=== PATIENT | male | born 1965 | race Caucasian/White ===

== ENCOUNTER 2018-11-16 22:17 | Inpatient (IN) ==
[2018-11-16] MEDS ORDERED: 0.9 % Sodium Chloride 1,000 ML IVC ONE (22:23)
[2018-11-16] MEDS ORDERED: Ondansetron 4 MG/2 ML VIAL IVP ONE (22:23)
[2018-11-16] MEDS ORDERED: *HR* HYDROmorphone (PF) 1 MG/ML SYRINGE IVP ONE (22:23)
[2018-11-16 22:46] LABS: Basophils % 0.2 %; Eosinophils % 0.3 %; Hematocrit 46.3 % (37.5-50.1); Immature Granulocytes % 0.2 % (0-4); Lymphocytes # 2.2 K/mcL (0.6-4.6); Lymphocytes % 16.3 %; Mean Corpuscular HGB Conc 34.6 g/dL (31.6-35.5); Mean Corpuscular Hemoglobin 32.5 pg (28.0-33.3); Mean Corpuscular Volume 94.1 fL (83.0-100.0); Mean Platelet Volume 10.4 fL (9.4-12.4); Monocytes # 0.9 K/mcL (0.0-1.3); Monocytes % 6.7 %; Neutrophils # 10.1 K/mcL (1.6-8.9); Platelet Count 140 K/mcL (140-400); Red Blood Count 4.92 M/mcL (4.19-5.50); Red Cell Distribution Width 12.5 % (11.5-14.5); Segmented Neutrophils % 76.3 %; White Blood Count 13.2 K/mcL (4.3-11.1)
--- NOTE | 2018-11-16 22:49 | Emergency Department Note ---
Disposition Clinical Impression: Pancreatitis Qualifiers: Chronicity: acute Pancreatitis type: unspecified pancreatitis type Acute pancreatitis complication: unspecified Qualified Code(s): K85.90 - Acute pancreatitis without necrosis or infection, unspecified Disposition: Admitted As Inpatient Condition: Good Time of Disposition: 00:01 Abdominal Pain HPI - General Chief Complaint: ED Abdominal Pain Stated Complaint: abdominal pain Time Seen by Provider: 11/16/18 22:23 Source: patient, family Nursing Notes Reviewed: Yes Vital Signs Reviewed: Yes - History of Present Illness HPI Narrative: Male patient presenting to the emergency department complaining of a two-day history of abdominal pain. Does have a history of pancreatitis 2 times that this is been several years ago. Also history of diabetes and Parkinson's. States that the pain started yesterday but is gotten significantly worse today after eating [employer] this afternoon. Patient complaining of epigastric pain. Denies any fevers or chills. Denies any shortness breath or cough. Does report some nausea with associated vomiting that is nonbloody nonbilious. No diarrhea. No alleviating factors. No radiation of the pain. Pain Scale: 6 - Related Data Home Medications Medication Instructions Recorded Confirmed Atorvastatin [Lipitor] 40 mg PO HS 11/16/18 11/16/18 Carbidopa/Levodopa [Carbidopa-Levo 1 each PO BID 11/16/18 11/16/18 ER 25-100 Tab] Lisinopril [Zestril] 20 mg PO DAILY 11/16/18 11/16/18 metFORMIN [Glucophage] 1,000 mg PO BIDWM 11/16/18 11/16/18 Allergies Allergy/AdvReac Type Severity Reaction Status Date / Time Iodinated Contrast Media Allergy Hives Verified 11/16/18 22:19 All systems ED: reviewed and negative except as stated. Review of Systems: As Per HPI Constitutional: Denies: fever, chills Cardiovascular: Denies: chest pain, palpitations, syncope Respiratory: Denies: cough, dyspnea Gastrointestinal: Reports: abdominal pain, nausea, vomiting. Denies: diarrhea, hematemesis, melena, hematochezia Genitourinary: Denies: urgency, dysuria, frequency Musculoskeletal: Denies: back pain, neck pain Integumentary: Denies: rash, abrasion Neurological: Denies: headache, weakness, numbness Abdominal Pain PMH - Past Medical History Medical history: Reports: diabetes, hyperlipidemia, hypertension, other Male Surgical History: Reports: appendectomy, orthopedic, other, vasectomy Psychiatric history: Reports: no psych history - Social History Smoking status: Former smoker Alcohol use: Reports: occasionally Drug use: Reports: none Physical Exam - General Limitations: no limitations General appearance: alert, other (Complaining of pain. Looks uncomfortable.) - Head Head exam: atraumatic, normocephalic, normal inspection - Eye Eye exam: Present: normal appearance, PERRL, EOMI - ENT ENT exam: normal exam, normal oropharynx, mucous membranes moist - Neck Neck exam: Present: normal inspection, full ROM, trachea midline - Chest Chest inspection: Present: normal inspection, symmetric chest wall rise - Respiratory Respiratory exam: Present: normal lung sounds bilaterally. Absent: respiratory distress, accessory muscle use - Cardiovascular Cardiovascular exam: Present: regular rate, normal rhythm, normal heart sounds - Abdominal Exam Abdominal exam: Present: soft, tenderness (To palpation of left upper quadrant and epigastric region.), distention (Rounded. Non-peritoneal.). Absent: guarding, rebound, rigidity, organomegaly, Farley's sign, Rovsing's sign, tender ness at McBurney's Point - Extremities Exam Extremities exam: Present: normal inspection, full ROM, normal capillary refill. Absent: tenderness, pedal edema - Back Exam Back exam: Present: normal inspection, full ROM. Absent: tenderness - Neurological Exam Neurological exam: Present: alert, oriented X3 - Psychiatric Psychiatric exam: Present: normal affect, normal mood - Skin Skin exam: Present: warm, dry, intact, normal color. Absent: rash, cyanosis, diaphoresis Course Course Narrative: Patient appears uncomfortable. Was given pain medication as well as antinausea medication basic labs were drawn. Lipase is elevated. Patient with concerns for pancreatitis on CT as well. Does have a history of pancreatitis as well as is a diabetic. We did provide him with another dose of Dilaudid while he is here. We also provided him with a BiPAP device secondary to his history of sleep apnea. He is not febrile. Does not believe that he will be able to c ontrol his pain at home. We will admit patient to the hospital for further pain management. Vital Signs Temperature 98.0 F 11/16/18 22:19 Pulse Rate 81 11/16/18 22:19 Respiratory Rate 20 11/16/18 22:19 Blood Pressure 150/92 11/16/18 22:19 O2 Sat by Pulse Oximetry 94 11/16/18 22:19 Temperature 98.0 F 11/16/18 22:19 Pulse Rate 85 11/16/18 23:39 Respiratory Rate 18 11/16/18 23:39 Blood Pressure 149/90 11/16/18 23:39 O2 Sat by Pulse Oximetry 92 11/16/18 23:39 Oxygen Delivery Oxygen Delivery Room Air Abdominal Pain - Medical Records Medical records reviewed: Yes I reviewed the patient's medical records. - Lab Data Lab results reviewed: Yes I reviewed the patient's lab results. Result diagrams: 11/16/18 22:38 11/16/18 22:38 Lab Results 11/16/18 11/16/18 Range/Units 22:38 22:38 WBC 13.2 H (4.3-11.1) K/mcL RBC 4.92 (4.19-5.50) M/mcL Hgb 16.0 (12.9-16.9) g/dL Hct 46.3 (37.5-50.1) % MCV 94.1 (83.0-100.0) fL MCH 32.5 (28.0-33.3) pg MCHC 34.6 (31.6-35.5) g/dL RDW 12.5 (11.5-14.5) % Plt Count 140 (140-400) K/mcL MPV 10.4 (9.4-12.4) fL Immature Gran % 0.2 (0-4) % Seg Neutrophils % 76.3 % Lymphocytes % 16.3 % Monocytes % 6.7 % Eosinophils % 0.3 % Basophils % 0.2 % Neutrophils # 10.1 H (1.6-8.9) K/mcL Lymphocytes # 2.2 (0.6-4.6) K/mcL Monocytes # 0.9 (0.0-1.3) K/mcL Eosinophils # 0.0 (0.0-0.6) K/mcL Basophils # 0.0 (0.0-0.2) K/mcL Sodium 134 L (136-145) mEq/L Potassium 4.0 (3.5-5.1) mEq/L Chloride 101 (98-107) mEq/L Carbon Dioxide 24 (23-29) mEq/L BUN 15 (6-20) mg/dL Creatinine 0.69 L (0.70-1.30) mg/dL Est GFR ( Amer) > 60 (> 60) Est GFR (Non-Af Amer) > 60 (> 60) BUN/Creatinine Ratio 22 (6-26) Glucose 146 H (70-105) mg/dL Calculated Osmolality 281 (280-300) Calcium 9.0 (8.6-10.3) mg/dL Total Bilirubin 0.8 (0.3-1.0) mg/dL Direct Bilirubin 0.2 (0.0-0.2) mg/dL Indirect Bilirubin 0.6 (0.0-1.2) mg/dL AST 39 (13-39) Units/L ALT 16 (7-52) Units/L Alkaline Phosphatase 75 (34-104) Units/L Serum Total Protein 7.5 (6.4-8.9) g/dL Albumin 3.9 (3.5-5.7) g/dL Globulin 3.6 H (2.4-3.5) g/dL Albumin/Globulin Ratio 1.1 (1.1-2.2) Lipase 900 H (11-82) Units/L - Radiology Data Radiology results reviewed: Yes I reviewed the patient's radiology results. Abdomen/Pelvis CT 11/16/18 22:23 IMPRESSION: Moderate inflammatory changes compatible with acute pancreatitis. There is a small amount of peripancreatic, perisplenic and pelvic fluid. Fatty infiltration of liver. Morphology liver is worrisome for chronic disease. Bilateral nephrolithiasis. D/ / Ashley Grady Cha, MD / Ashley Grady Cha, MD Interpreting Provider: Ashley Grady Cha, MD
--- NOTE | 2018-11-16 23:13 | Emergency Department Note ---
Disposition Clinical Impression: Pancreatitis Qualifiers: Chronicity: acute Pancreatitis type: unspecified pancreatitis type Acute pancreatitis complication: unspecified Qualified Code(s): K85.90 - Acute pancreatitis without necrosis or infection, unspecified Disposition: Admitted As Inpatient Condition: Good Time of Disposition: 00:01 General Adult HPI - General Chief complaint: ED Abdominal Pain Stated complaint: abdominal pain Time Seen by Provider: 11/16/18 22:23 Source: patient, family Limitations: no limitations - History of Present Illness Pain Scale: 6 - Related Data Home Medications Medication Instructions Recorded Confirmed metFORMIN [Glucophage] 500 mg PO BIDWM 11/16/18 11/17/18 Atorvastatin [Lipitor] 10 mg PO HS 11/17/18 11/17/18 Carbidopa/Levodopa ER 50/200 2 tab PO BID 11/17/18 11/17/18 [Sinemet ER 50-200 Tab] Lisinopril [Zestril] 10 mg PO DAILY 11/17/18 11/17/18 Allergies Allergy/AdvReac Type Severity Reaction Status Date / Time Iodinated Contrast Media Allergy Hives Verified 11/16/18 22:19 Past Medical History - Past Medical History Medical history: Reports: diabetes, hyperlipidemia, hypertension, other Psychiatric history: Reports: no psych history - Social History Smoking Status: Former smoker Alcohol use: Reports: occasionally Drug use: Reports: none Physical Exam - General Limitations: no limitations General appearance: alert Course Vital Signs Temperature 98.0 F 11/16/18 22:19 Pulse Rate 81 11/16/18 22:19 Respiratory Rate 20 11/16/18 22:19 Blood Pressure 150/92 11/16/18 22:19 O2 Sat by Pulse Oximetry 94 11/16/18 22:19 Temperature 98.7 F 11/17/18 19:32 Pulse Rate 94 11/17/18 19:32 Respiratory Rate 15 11/17/18 19:32 Blood Pressure 137/76 11/17/18 19:32 O2 Sat by Pulse Oximetry 93 11/17/18 19:32 Oxygen Delivery Oxygen Delivery Room Air Medical Decision Making - Lab Data Result diagrams: 11/17/18 03:35 11/16/18 22:38 Lab Results 11/16/18 11/16/18 11/16/18 Range/Units 22:38 22:38 23:50 WBC 13.2 H (4.3-11.1) K/mcL RBC 4.92 (4.19-5.50) M/mcL Hgb 16.0 (12.9-16.9) g/dL Hct 46.3 (37.5-50.1) % MCV 94.1 (83.0-100.0) fL MCH 32.5 (28.0-33.3) pg MCHC 34.6 (31.6-35.5) g/dL RDW 12.5 (11.5-14.5) % Plt Count 140 (140-400) K/mcL MPV 10.4 (9.4-12.4) fL Immature Gran % 0.2 (0-4) % Seg Neutrophils % 76.3 % Lymphocytes % 16.3 % Monocytes % 6.7 % Eosinophils % 0.3 % Basophils % 0.2 % Neutrophils # 10.1 H (1.6-8.9) K/mcL Lymphocytes # 2.2 (0.6-4.6) K/mcL Monocytes # 0.9 (0.0-1.3) K/mcL Eosinophils # 0.0 (0.0-0.6) K/mcL Basophils # 0.0 (0.0-0.2) K/mcL Sodium 134 L (136-145) mEq/L Potassium 4.0 (3.5-5.1) mEq/L Chloride 101 (98-107) mEq/L Carbon Dioxide 24 (23-29) mEq/L BUN 15 (6-20) mg/dL Creatinine 0.69 L (0.70-1.30) mg/dL Est GFR ( Amer) > 60 (> 60) Est GFR (Non-Af Amer) > 60 (> 60) BUN/Creatinine Ratio 22 (6-26) Glucose 146 H (70-105) mg/dL Calculated Osmolality 281 (280-300) Calcium 9.0 (8.6-10.3) mg/dL Total Bilirubin 0.8 (0.3-1.0) mg/dL Direct Bilirubin 0.2 (0.0-0.2) mg/dL Indirect Bilirubin 0.6 (0.0-1.2) mg/dL AST 39 (13-39) Units/L ALT 16 (7-52) Units/L Alkaline Phosphatase 75 (34-104) Units/L Serum Total Protein 7.5 (6.4-8.9) g/dL Albumin 3.9 (3.5-5.7) g/dL Globulin 3.6 H (2.4-3.5) g/dL Albumin/Globulin Ratio 1.1 (1.1-2.2) Lipase 900 H (11-82) Units/L Urine Color Yellow (Yellow) Urine Clarity Clear (Clear) Urine pH 5.5 (5.0-8.0) pH Units Ur Specific [place] 1.025 (1.010-1.025) Urine Protein Trace (Neg-Trace) mg/dL Urine Glucose (UA) 100 H (Normal) mg/dL Urine Ketones Trace H (Negative) mg/dL Urine Blood Negative (Negative) Urine Nitrite Negative (Negative) Urine Bilirubin Negative (Negative) Urine Urobilinogen Normal (Normal) mg/dL Ur Leukocyte Esterase Negative (Negative) Ur Culture Indicated? NO (NO) Attestation Statement - Attestation Attestation: I examined this patient and my medical decision-making was reviewed with the Resident Physician. I agree with the documented findings, disposition and treatment plan as described except to the extent set forth below. Patient 3-year-old gentleman who presents to the emergency department with chief complaint of epigastric pain. The patient reports he has prior history of pancreatitis this feels similar when his hepatitis before in the past. Physical exam patient is awake alert in mild pain distress tenderness to palpation in the epigastric region. Medical decision management patient received IV hydration and pain control antiemetics patient will undergo laboratory testing and CT scan of the abdomen and pelvis. The patient will not receive IV contrast due to contrast allergy.
[2018-11-16 23:20] LABS: Alanine Aminotransferase 16 Units/L (7-52); Albumin 3.9 g/dL (3.5-5.7); Albumin/Globulin Ratio 1.1 (1.1-2.2); Alkaline Phosphatase 75 Units/L (34-104); Aspartate Amino Transferase 39 Units/L (13-39); BUN/Creatinine Ratio 22 (6-26); Bilirubin,Direct 0.2 mg/dL (0.0-0.2); Bilirubin,Indirect 0.6 mg/dL (0.0-1.2); Bilirubin,Total 0.8 mg/dL (0.3-1.0); Blood Urea Nitrogen 15 mg/dL (6-20); Carbon Dioxide 24 mEq/L (23-29); Chloride 101 mEq/L (98-107); Globulin 3.6 g/dL (2.4-3.5); Glucose 146 mg/dL (70-105); Osmolality,Calculated 281 (280-300); Sodium 134 mEq/L (136-145); Total Protein 7.5 g/dL (6.4-8.9); eGFR For African Americans > 60 (> 60); eGFR For Non-African Americans > 60 (> 60)
[2018-11-16 23:31] LABS: Lipase 900 Units/L (11-82)
[2018-11-16] MEDS ORDERED: *HR* HYDROmorphone (PF) 1 MG/ML SYRINGE IVP STA (23:35)
[2018-11-17 00:48] LABS: Bilirubin,Urine Negative (Negative); Blood,Urine Negative (Negative); Clarity,Urine Clear (Clear); Color,Urine Yellow (Yellow); Glucose,Urine (UA) 100 mg/dL (Normal); Ketones,Urine Trace mg/dL (Negative); Leukocyte Esterase,Urine Negative (Negative); Nitrite,Urine Negative (Negative); PH,Urine 5.5 pH Units (5.0-8.0); Protein,Urine Trace mg/dL (Neg-Trace); Specific Gravity,Urine 1.025 (1.010-1.025); Urobilinogen,Urine Normal (Normal)
[2018-11-17] MEDS ORDERED: *HR* Dextrose 50 % in Water (Syg) 50 ML SYRINGE IVP PRN (02:27)
[2018-11-17] MEDS ORDERED: Dextrose Gel 15 GM/37.5 ML TUBE PO PRN ×2 (02:27)
[2018-11-17] MEDS ORDERED: Ondansetron 4 MG/2 ML VIAL IVP PRN (02:27)
[2018-11-17] MEDS ORDERED: *HR* OxyCODONE Immed Rel 5 MG TABLET PO PRN (02:27)
[2018-11-17] MEDS ORDERED: D5% in Water 1,000 ML IVC PRN (02:27)
[2018-11-17] MEDS ORDERED: Naloxone 0.4 MG/ML INJ IVP PRN ×2 (02:27)
--- NOTE | 2018-11-17 02:40 | Internal Med History&Physical ---
Date of Encounter: 11/17/18 Time of Encounter: 02:36 Internal Medicine - H&P: HPI Chief complaint: abdominal pain Admitted From: Home History of present illness: Mr. Fairbanks is a 53 year old male with past medical history of hypertension, hyperlipidemia, type 2 diabetes [id number] presented to the ED for abdominal pain. Face to face encounter occured at 1:50 AM. Patient reported eating [employer] 30 minutes later developing upper abdominal pain that radiates to the back constant and rated 6/10 no alleviating factor, or exacerbating factor causing debilitating the patient. Patient stated that he has had 2 episodes of pancreatitis previously with the same presentation this visit. Patient also reported that he has never underwent cholecystectomy. Patient does admit of drinking alcohol 1-2 beers every occasion. Denied smoking or drugs. family history medical history surgical history were reviewed personaly. Patient's both parents had cardiac disease, has allergies to CT contrast by getting hives. Patient denied any abdominal surgeries except for appendectomy as a teenage years. CODE STATUS was discussed and the patient presented with full code. Patient is unclear if he has elevated triglyceridemia in the family however report that it has been high. Past Med Surg Social Fam HX - Past Medical History Medical history: diabetes, hyperlipidemia, hypertension, other Additional medical history: parkinsons, pancreatis, Sleep Apnea Psychiatric history: no psych history - Past Surgical History Surgical History: appendectomy Additional surgical history: orthopedic surgeries, C6 and C7 surgery - Social History Smoking Status: Former smoker Alcohol use: occasionally Drug use: none - Family History Mother Hx Family Cardiac Disorders: Yes (HTN) Father Living Status: Age at : 60 Cause of : brain bleed Hx Family Cardiac Disorders: Yes (HTN) Hx Family Musculoskeletal Disorders: Yes Internal Medicine - H&P: Meds Atorvastatin [Lipitor] 40 mg PO HS 11/16/18 [History] Carbidopa/Levodopa [Carbidopa-Levo ER 25-100 Tab] 1 each PO BID 11/16/18 [History] Lisinopril [Zestril] 20 mg PO DAILY 11/16/18 [History] metFORMIN [Glucophage] 1,000 mg PO BIDWM 11/16/18 [History] Allergy/AdvReac Type Severity Reaction Status Date / Time Iodinated Contrast Media Allergy Hives Verified 11/16/18 22:19 All Systems PM: A 10-system review of systems was performed and is negative for pertinent findings except as documented above in the HPI. Review of systems: General: No unintentional weightloss, No fever, No night sweats. Head: No headahce, No injury. Ears: No discharge, No earache Eyes: No drainage, No eye pain Mouth and Throat: No new ulcers, No pain Nose and Sinus: No new congestion, No pain, Respiratory: No cough, No sputum production, No dyspnea Cardiovascular: No chest pain, No palpitations. Gastrointestinal: + nausea, + abdominal pain Genital Tract: No discharge, No pain Urinary Tract: No dysuria, No discharge. MSK: No new/worsening joint pain or new/worsening muscle ache. Endocrine: No cold intolerance, No polyuria Psychological: No suicidal, No homocidal ideation. - Constitutional Vitals: Temp Pulse Resp BP Pulse Ox 97.7 F 84 15 128/80 91 11/17/18 00:40 11/17/18 00:40 11/17/18 00:40 11/17/18 00:40 11/17/18 00:40 Exam: General Appearance: Appearing as age, well-nourished in no acute distress. Head: Atraumatic normocephalic Skin: Normal texture, normal turgor, warm. dry mucous membranes. hyperpigmentation BL duncan legs. Eyes: Conjunctivae not pale with no erythema, drainage, or ulcers. Anicteric. Neck: No Lymphadenopathy in the anterior/posterior cervical chain. No t hyromegaly, masses or ulcers. Trachea midline. Heart: RRR, no murmurs. Capillary refill 3 seconds Lungs: No accessory muscle usage, lungs clear to auscultation bilaterally, no wheezes or crackles. Extremities: No pitting edema, clubbing, cyanosis, or ulcers. Abdomen:distended, normoactive bowel sounds. tender to palpation mostly upper quadrant with no guarding and negative fisher sign. Neuro: AOx3 with no new sensory loss or focal deficits. MSK: Strength 5/5 Upper extremity equal bilaterally. Strength 5/5 Lower extremity equal bilaterally Internal Med - H&P Results - Labs CBC & Chem 7: 11/16/18 22:38 11/16/18 22:38 Labs: Short CBC 11/16/18 Range/Units 22:38 WBC 13.2 H (4.3-11.1) K/mcL Hgb 16.0 (12.9-16.9) g/dL Hct 46.3 (37.5-50.1) % Plt Count 140 (140-400) K/mcL Neutrophils # 10.1 H (1.6-8.9) K/mcL BMP 11/16/18 22:38 Sodium 134 L Potassium 4.0 Chloride 101 Carbon Dioxide 24 BUN 15 Creatinine 0.69 L Glucose 146 H Calcium 9.0 Liver Function 11/16/18 Range/Units 22:38 Total Bilirubin 0.8 (0.3-1.0) mg/dL Direct Bilirubin 0.2 (0.0-0.2) mg/dL AST 39 (13-39) Units/L ALT 16 (7-52) Units/L Alkaline Phosphatase 75 (34-104) Units/L Albumin 3.9 (3.5-5.7) g/dL Urine 11/16/18 Range/Units 23:50 Urine Color Yellow (Yellow) Urine Clarity Clear (Clear) Urine pH 5.5 (5.0-8.0) pH Units Ur Specific [place] 1.025 (1.010-1.025) Urine Protein Trace (Neg-Trace) mg/dL Urine Glucose (UA) 100 H (Normal) mg/dL - Impressions ITS Impressions Abdomen/Pelvis CT 11/16/18 22:23 IMPRESSION: Moderate inflammatory changes compatible with acute pancreatitis. There is a small amount of peripancreatic, perisplenic and pelvic fluid. Fatty infiltration of liver. Morphology liver is worrisome for chronic disease. Bilateral nephrolithiasis. D/ / Ashley Grady Cha, MD / Ashley Grady Cha, MD Interpreting Provider: Ashley Grady Cha, MD - Summary of Assessment and Plan Summary of Assessment and Plan: 1. Acute interstitial pancreatitis: Third episode with reported no history of cholecystectomy. Mine score 0 pending LDH. Strict I's and O's, aggressive hydration. Lipid panel, ultrasound gallbladder pending. Dilaurdid for pain. Surgical consultation for inpatient cholecystectomy when tolerated. 2. Hyponatremia: Continue fluid resuscitation and will recheck. 3.Uncontrolled diabetes: Accu-Cheks with insulin sliding scale Held metformin. Chronic medical conditions: Class III obesity: Nutrition consulted Hypertension: Held lisinopril Hyperlipidemia: Continue atorvastatin PD: Continue Carbidopa/levodopa DVT prophylaxis: Heparin Disposition: Patient will likely have more than 2 day stay. - Time Spent With Patient Total time spent is greater than 37 minutes 50% in coordination of care (as documented) at patient's floor/unit and/or counseling patient: Greater than 35 minutes
[2018-11-17] MEDS: Insulin LISPRO 300 UNITS/3 ML VIAL SQ SCH ×5 (02:57→21:37)
[2018-11-17] MEDS: Ringers Solution, Lactated 1,000 ML IVC SCH ×4 (02:57→15:38)
[2018-11-17] MEDS ORDERED: *HR* HYDROmorphone (PF) 1 MG/ML SYRINGE IVP PRN ×2 (03:04→09:54)
[2018-11-17 03:50] LABS: Basophils % 0.2 %; Eosinophils % 0.1 %; Hematocrit 45.6 % (37.5-50.1); Hemoglobin 15.1 g/dL (12.9-16.9); Immature Granulocytes % 0.3 % (0-4); Lymphocytes # 1.9 K/mcL (0.6-4.6); Mean Corpuscular HGB Conc 33.1 g/dL (31.6-35.5); Mean Corpuscular Hemoglobin 32.4 pg (28.0-33.3); Mean Corpuscular Volume 97.9 fL (83.0-100.0); Mean Platelet Volume 10.2 fL (9.4-12.4); Monocytes # 0.9 K/mcL (0.0-1.3); Monocytes % 6.8 %; Neutrophils # 10.8 K/mcL (1.6-8.9); Platelet Count 146 K/mcL (140-400); Red Blood Count 4.66 M/mcL (4.19-5.50); Red Cell Distribution Width 12.7 % (11.5-14.5); Segmented Neutrophils % 78.6 %; White Blood Count 13.7 K/mcL (4.3-11.1)
[2018-11-17 04:03] LABS: INR 1.1; Prothrombin Time 12.2 Seconds (9.4-12.1)
[2018-11-17 04:12] LABS: Albumin 3.7 g/dL (3.5-5.7); Albumin/Globulin Ratio 1.1 (1.1-2.2); Bilirubin,Direct 0.2 mg/dL (0.0-0.2); Bilirubin,Indirect 0.6 mg/dL (0.0-1.2); Bilirubin,Total 0.8 mg/dL (0.3-1.0); Globulin 3.4 g/dL (2.4-3.5); Magnesium 1.8 mg/dL (1.6-2.6); Phosphorous 4.4 mg/dL (2.7-4.5); Total Protein 7.1 g/dL (6.4-8.9)
[2018-11-17 05:03] LABS: Estimated Average Glucose 214 mg/dl
[2018-11-17] MEDS: *HR* Heparin 5,000 UNIT/ML VIAL SQ SCH ×3 (05:54→21:18)
--- NOTE | 2018-11-17 08:00 | AcuteCare Surgery Consult Note ---
Date of Encounter: 11/17/18 Time of Encounter: 07:45 Assessment and Plan (1) Pancreatitis Current Visit: Yes Status: Acute The patient presents for his third episode of pancreatitis. An etiology for pancreatitis has not been established. Differential diagnosis includes hyperlipidemia, drug effect, alcohol consumption, idiopathic, or biliary origin. Ultrasound was ordered. Continue conservative management Qualifiers: Chronicity: acute Pancreatitis type: unspecified pancreatitis type Acute pancreatitis complication: unspecified Qualified Code(s): K85.90 - Acute pancreatitis without necrosis or infection, unspecified History of Present Illness Consult date: 11/17/18 Reason for consult: other (Pancreatitis) History of present illness: The patient presents with new onset upper abdominal pain radiating through to his back. He underwent CAT scan in the abdomen and pancreatitis was diagnosed. This is his third episode of pancreatitis. The etiology of the pancreatitis has not been established. I personally reviewed the CAT scan of the abdomen. He does have peripancreatic edema with no evidence of abscess. The edema is worse at the tail of the pancreas. There is no pseudocyst formation. At this point etiology is undetermined. We will repeat the ultrasound right upper quadrant to assess the biliary system for cholelithiasis. The differential diagnosis includes hyperlipidemia, idiopathic, alcohol, drug related, or biliary origin. We will be glad to follow along with you. Past Med Surg Social Fam HX - Past Medical History Medical history: diabetes, hyperlipidemia, hypertension, other Additional medical history: parkinsons, pancreatis, Sleep Apnea Psychiatric history: no psych history - Past Surgical History Surgical History: appendectomy Additional surgical history: orthopedic surgeries, C6 and C7 surgery - Social History Smoking Status: Former smoker Alcohol use: occasionally Drug use: none - Family History Mother Hx Family Cardiac Disorders: Yes (HTN) Father Living Status: Age at : 60 Cause of : brain bleed Hx Family Cardiac Disorders: Yes (HTN) Hx Family Musculoskeletal Disorders: Yes Medications and Allergies Atorvastatin [Lipitor] 40 mg PO HS 11/16/18 [History] Carbidopa/Levodopa [Carbidopa-Levo ER 25-100 Tab] 1 each PO BID 11/16/18 [History] Lisinopril [Zestril] 20 mg PO DAILY 11/16/18 [History] metFORMIN [Glucophage] 1,000 mg PO BIDWM 11/16/18 [History] Allergy/AdvReac Type Severity Reaction Status Date / Time Iodinated Contrast Media Allergy Hives Verified 11/16/18 22:19 Review of Systems All systems PM: The remainder of the systems were reviewed and are negative General Surgery Exam Initial Vital Signs Temp Pulse Resp BP Pulse Ox 98.0 F 81 20 150/92 94 11/16/18 22:19 11/16/18 22:19 11/16/18 22:19 11/16/18 22:19 11/16/18 22:19 - General physical appearance well developed, well nourished, no distress - Neck no masses, no bruits, trachea midline, no lymphadectomy, no venous distension - Respiratory normal expansion, normal respiratory effort, clear to auscultation - Cardiovascular Cardiovascular exam: Present: RRR, no murmurs/rubs/gallops - Abdomen Abdomen general surgery: Present: tender Abdominal Tenderness: Present: epigastic, RUQ, LUQ (No evidence of guarding or rebound. No involuntary guarding) - Neurologic Present: CN 2-12 grossly intact, normal coordination, normal sensation - Psychiatric Psychiatric general surgery: Present: appropriate, oriented to person, oriented to place, oriented to time, speech is normal, memory intact Exam Initial Vital Signs Temp Pulse Resp BP Pulse Ox 98.0 F 81 20 150/92 94 11/16/18 22:19 11/16/18 22:19 11/16/18 22:19 11/16/18 22:19 11/16/18 22:19 Results - Labs 11/17/18 03:35 11/16/18 22:38 Abnormal lab results WBC 13.7 K/mcL (4.3-11.1) H 11/17/18 03:35 Neutrophils # 10.8 K/mcL (1.6-8.9) H 11/17/18 03:35 PT 12.2 Seconds (9.4-12.1) H 11/17/18 03:35 Sodium 134 mEq/L (136-145) L 11/16/18 22:38 Creatinine 0.69 mg/dL (0.70-1.30) L 11/16/18 22:38 Glucose 146 mg/dL (70-105) H 11/16/18 22:38 POC Glucose 147 mg/dL (70-99) H 11/17/18 07:12 Hemoglobin A1c 9.1 % (-5.6) H 11/17/18 03:35 ALT 6 Units/L (7-52) L 11/17/18 03:35 Globulin 3.6 g/dL (2.4-3.5) H 11/16/18 22:38 Lipase 900 Units/L (11-82) H 11/16/18 22:38 Urine Glucose (UA) 100 mg/dL (Normal) H 11/16/18 23:50 Urine Ketones Trace mg/dL (Negative) H 11/16/18 23:50 Diabetes panel 11/16/18 11/17/18 11/17/18 Range/Units 22:38 03:35 03:35 Sodium 134 L (136-145) mEq/L Potassium 4.0 (3.5-5.1) mEq/L Chloride 101 (98-107) mEq/L Carbon Dioxide 24 (23-29) mEq/L BUN 15 (6-20) mg/dL Creatinine 0.69 L (0.70-1.30) mg/dL Glucose 146 H (70-105) mg/dL Hemoglobin A1c 9.1 H ( - 5.6) % Calcium 9.0 (8.6-10.3) mg/dL AST 39 (13-39) Units/L ALT 16 (7-52) Units/L Alkaline Phosphatase 75 (34-104) Units/L Albumin 3.9 (3.5-5.7) g/dL Triglycerides 64 (< 150) mg/dL 11/17/18 Range/Units 03:35 Sodium (136-145) mEq/L Potassium (3.5-5.1) mEq/L Chloride (98-107) mEq/L Carbon Dioxide (23-29) mEq/L BUN (6-20) mg/dL Creatinine (0.70-1.30) mg/dL Glucose (70-105) mg/dL Hemoglobin A1c ( - 5.6) % Calcium (8.6-10.3) mg/dL AST 33 (13-39) Units/L ALT 6 L (7-52) Units/L Alkaline Phosphatase 68 (34-104) Units/L Albumin 3.7 (3.5-5.7) g/dL Triglycerides (< 150) mg/dL Calcium panel 11/16/18 11/17/18 Range/Units 22:38 03:35 Calcium 9.0 (8.6-10.3) mg/dL Phosphorus 4.4 (2.7-4.5) mg/dL Albumin 3.9 3.7 (3.5-5.7) g/dL Pituitary panel 11/16/18 Range/Units 22:38 Sodium 134 L (136-145) mEq/L Potassium 4.0 (3.5-5.1) mEq/L Chloride 101 (98-107) mEq/L Carbon Dioxide 24 (23-29) mEq/L BUN 15 (6-20) mg/dL Creatinine 0.69 L (0.70-1.30) mg/dL Glucose 146 H (70-105) mg/dL Calcium 9.0 (8.6-10.3) mg/dL Adrenal panel 11/16/18 11/17/18 Range/Units 22:38 03:35 Sodium 134 L (136-145) mEq/L Potassium 4.0 (3.5-5.1) mEq/L Chloride 101 (98-107) mEq/L Carbon Dioxide 24 (23-29) mEq/L BUN 15 (6-20) mg/dL Creatinine 0.69 L (0.70-1.30) mg/dL Glucose 146 H (70-105) mg/dL Calcium 9.0 (8.6-10.3) mg/dL Total Bilirubin 0.8 0.8 (0.3-1.0) mg/dL AST 39 33 (13-39) Units/L ALT 16 6 L (7-52) Units/L Alkaline Phosphatase 75 68 (34-104) Units/L Albumin 3.9 3.7 (3.5-5.7) g/dL All other labs normal. - Imaging CT scan - abdomen: image reviewed (I personally reviewed the CAT scan of the abdomen. He has peripancreatic edema. I cannot identify any abnormalities in the biliary system on CAT scan. Follow-up ultrasound is ordered) Consult Discharge Plan - Plan Referrals: Bryan Ybarra DO [Primary Care Provider] -
--- NOTE | 2018-11-17 10:03 | Event Note ---
Date of Encounter: 11/17/18 Time of Encounter: 10:40 53-year-old male with history of type 2 diabetes, obesity who came into the hospital with abdominal pain and was found to have pancreatitis. Acute pancreatitis: - SIRS score is 1, on 200ml RL to target HCT<40 AND BUN< 20. Pain management with oxycodone every 6 hours for moderate to severe pain and Dilaudid for breakthrough pain. Etiology still unclear as his LFTs are normal. Patient is not a drinker. Lisinopril is associated with pancreatitis so will stop. NPO for today and can start clear liquids tomorrow. GS is consulted for eval for cholecystectomy. Ultrasound of the abdomen is ordered. Obesity: We discussed lifestyle modification with the patient Type II DM: hold metformin. On sliding scale every 6 hours. DVT prophylaxis: sc heparin
[2018-11-17] MEDS: *HR* OxyCODONE Immed Rel 5 MG TABLET PO PRN ×2 (10:34→17:48)
[2018-11-17] MEDS: Carbidopa/Levodopa ER 50/200 TABLET PO SCH ×2 (15:39→21:19)
[2018-11-17] MEDS ORDERED: Carbidopa/Levodopa ER 50/200 TABLET PO SCH (21:00)
[2018-11-17] MEDS ORDERED: Ketorolac 30 MG/ML VIAL IVP PRN (21:46)
[2018-11-17] MEDS: Acetaminophen 325 MG TABLET PO PRN (22:03)
[2018-11-18] MEDS: Insulin LISPRO 300 UNITS/3 ML VIAL SQ SCH ×3 (04:43→16:54)
[2018-11-18] MEDS: *HR* Heparin 5,000 UNIT/ML VIAL SQ SCH ×3 (05:40→21:00)
[2018-11-18] MEDS: Acetaminophen 325 MG TABLET PO PRN ×2 (05:41→11:35)
[2018-11-18] MEDS: Carbidopa/Levodopa ER 50/200 TABLET PO SCH ×2 (08:32→21:00)
[2018-11-18 09:05] LABS: Hematocrit 42.8 % (37.5-50.1); Hemoglobin 14.3 g/dL (12.9-16.9); Mean Corpuscular HGB Conc 33.4 g/dL (31.6-35.5); Mean Corpuscular Hemoglobin 32.4 pg (28.0-33.3); Mean Corpuscular Volume 96.8 fL (83.0-100.0); Mean Platelet Volume 10.4 fL (9.4-12.4); Platelet Count 121 K/mcL (140-400); Red Blood Count 4.42 M/mcL (4.19-5.50); Red Cell Distribution Width 12.6 % (11.5-14.5); White Blood Count 13.1 K/mcL (4.3-11.1)
[2018-11-18 09:16] LABS: BUN/Creatinine Ratio 21 (6-26); Blood Urea Nitrogen 14 mg/dL (6-20); Calcium 8.6 mg/dL (8.6-10.3); Carbon Dioxide 26 mEq/L (23-29); Chloride 98 mEq/L (98-107); Glucose 126 mg/dL (70-105); Osmolality,Calculated 274 (280-300); Potassium 3.9 mEq/L (3.5-5.1); Sodium 131 mEq/L (136-145); eGFR For African Americans > 60 (> 60); eGFR For Non-African Americans > 60 (> 60)
--- NOTE | 2018-11-18 09:28 | AcuteCareSurgery Progress Note ---
Date of Encounter: 11/18/18 Time of Encounter: 09:00 - Assessment and Plan (1) Pancreatitis Current Visit: Yes Status: Acute No indication of biliary pathology based on ultrasound or CAT scan. No evidence of ductal dilatation which would suggest intermittent passage of choledocholithiasis. No indication for cholecystectomy at this time. Etiology of pancreatitis unknown Qualifiers: Chronicity: acute Pancreatitis type: unspecified pancreatitis type Acute pancreatitis complication: unspecified Qualified Code(s): K85.90 - Acute pancreatitis without necrosis or infection, unspecified Subjective Narrative: The patient is seen and evaluated on morning rounds with the acute care surgery team. He states that his pain is improved from yesterday. I personally reviewed the ultrasound of the abdomen. There is no evidence of cholelithiasis, gallbladder sludge, or cholesterol crystals in the gallbladder. There is no evidence of ductal dilatation which may indicate intermittent passage of elidia docholithiasis. No indication for cholecystectomy at this time. The patient has no evidence that the etiology of his pancreatitis is related to the biliary system. I discussed this with the patient and he understands I would not recommend cholecystectomy at this time Objective Vital Signs - Last 8 Hours Temp Pulse Resp BP Pulse Ox 11/18/18 06:35 98.6 F 79 15 132/78 92 11/18/18 04:02 98.9 F 91 15 132/84 92 11/18/18 03:38 28 99 Intake and Output 11/17/18 11/18/18 11/18/18 23:59 07:59 15:59 Intake Total 1000 / 4000 360 / 360 Output Total 325 / 1400 500 / 500 Balance 675 / 2600 -140 / -140 Intake: IV Fluids 1000 / 4000 Lactated Ringers 1,000 ML @ 200 1000 / 2000 mls/hr IVC .Q5H EMILIE Rx#: [id number] Oral 360 / 360 Output: Urine 325 / 1400 500 / 500 Other: # Voids 0 Weight 113.4 kg Blood Glucose* 126 124 Patient Weight 11/18/18 23:59 Weight 113.4 kg - General physical appearance well developed, well nourished, moderate pain - Respiratory normal expansion, normal respiratory effort, clear to auscultation - Cardiovascular Cardiovascular exam: Present: RRR, no murmurs/rubs/gallops - Abdomen Abdomen: Present: bowel sounds present, tender Abdominal Tenderness: epigastic (Mild tenderness to deep palpation with no evidence of involuntary guarding or rebound) - Neurologic CN 2-12 grossly intact, normal coordination, normal sensation - Psychiatric oriented to time, oriented to person, oriented to place, speech is normal, memory intact - Labs 11/18/18 08:22 11/18/18 08:22 Diabetes panel 11/18/18 Range/Units 08:22 Sodium 131 L (136-145) mEq/L Potassium 3.9 (3.5-5.1) mEq/L Chloride 98 (98-107) mEq/L Carbon Dioxide 26 (23-29) mEq/L BUN 14 (6-20) mg/dL Creatinine 0.68 L (0.70-1.30) mg/dL Glucose 126 H (70-105) mg/dL Calcium 8.6 (8.6-10.3) mg/dL Calcium panel 11/18/18 Range/Units 08:22 Calcium 8.6 (8.6-10.3) mg/dL Pituitary panel 11/18/18 Range/Units 08:22 Sodium 131 L (136-145) mEq/L Potassium 3.9 (3.5-5.1) mEq/L Chloride 98 (98-107) mEq/L Carbon Dioxide 26 (23-29) mEq/L BUN 14 (6-20) mg/dL Creatinine 0.68 L (0.70-1.30) mg/dL Glucose 126 H (70-105) mg/dL Calcium 8.6 (8.6-10.3) mg/dL Adrenal panel 11/18/18 Range/Units 08:22 Sodium 131 L (136-145) mEq/L Potassium 3.9 (3.5-5.1) mEq/L Chloride 98 (98-107) mEq/L Carbon Dioxide 26 (23-29) mEq/L BUN 14 (6-20) mg/dL Creatinine 0.68 L (0.70-1.30) mg/dL Glucose 126 H (70-105) mg/dL Calcium 8.6 (8.6-10.3) mg/dL Consult Discharge Plan - Plan Referrals: Bryan Ybarra DO [Primary Care Provider] -
[2018-11-18] MEDS: 0.9 % Sodium Chloride 1,000 ML IVC SCH ×2 (10:16→21:07)
--- NOTE | 2018-11-18 12:02 | Internal Med Progress Note ---
Hospitalist Progress Note - Encounter Date of Encounter: 11/18/18 Time of Encounter: 09:45 - Subjective Interval History: Patient is a complaining about mild abdominal pain in the epigastric area. He denied nausea or vomiting. He has no fever overnight. He is tolerating clear liquid diet very well. - Exam Vitals: Temp Pulse Resp BP Pulse Ox 98.4 F 92 15 148/81 91 11/18/18 10:25 11/18/18 10:25 11/18/18 10:25 11/18/18 10:11/18/18 10:25 Exam: General: Patient is alert, oriented 3. Head: Atraumatic, normal inspection, normocephalic. Eye: EOMI, PERRLA, no scleral icterus noted. ENT: Mucous membranes moist. Neck: Normal inspection Respiratory: No respiratory distress, rhonchi, or wheezes noted. Cardiovascular: Regular rate and regular rhythm, S1 and S2 audible. No murmurs, rubs, or gallops. GI: Soft, nondistended, normal bowel sounds. Extremities:No joint swelling, pedal edema, or tenderness noted. Neurological: Alert, oriented 3, no focal deficits. Psychiatric: normal affect, normal mood. Skin: Dry, intact, warm. Normal color. No rashes. - Assessment and Plan (1) Pancreatitis Current Visit: Yes Status: Acute (2) HTN (hypertension) Current Visit: Yes Status: Acute (3) DVT prophylaxis Current Visit: Yes Status: Acute (4) Parkinson disease Current Visit: Yes Status: Chronic (5) IDDM (insulin dependent diabetes mellitus) Current Visit: Yes Status: Chronic - Summary of Assessment and Plan Summary of Assessment and Plan: 53-year-old male with history of type 2 diabetes, obesity who came into the hospital with abdominal pain and was found to have pancreatitis. Acute pancreatitis: - SIRS score is 1, on 100ml RL to target HCT<40 AND BUN< 20. Pain management with oxycodone every 6 hours for severe pain and Toradol for [id number] pain. Tolerating clear liquid diet very well. Etiology still unclear, ultrasound of the abdomen without evidence of cholecholedlithiasis. Patient is not a drinker. Lisinopril is associated with pancreatitis so will stop. Advance diet to low-fat diet. Obesity with BMI 40: discussed lifestyle modification with the patient Type II DM: hold metformin. On sliding scale TIDac. MARIE: continue CPAP. parkinson: continue home medications. DVT prophylaxis: sc heparin - Time Spent with Patient Total time spent is greater than 50% in coordination of care (as documented) at patient's floor/unit and/or counseling patient: Greater than 35 minutes Plan of Care Discussed with: patient Internal Medicine: Result - Labs CBC & Chem 7: 11/18/18 08:22 11/18/18 08:22 Labs: Short CBC 11/18/18 Range/Units 08:22 WBC 13.1 H (4.3-11.1) K/mcL Hgb 14.3 (12.9-16.9) g/dL Hct 42.8 (37.5-50.1) % Plt Count 121 L (140-400) K/mcL BMP 11/18/18 08:22 Sodium 131 L Potassium 3.9 Chloride 98 Carbon Dioxide 26 BUN 14 Creatinine 0.68 L Glucose 126 H Calcium 8.6 - ABG Interpretation ABG results: PT/INR, D-dimer PT 12.2 Seconds (9.4-12.1) H 11/17/18 03:35 - Impressions Impressions Gallbladder Ultrasound 11/17/18 09:00 IMPRESSION: 1. No cholelithiasis or ductal dilatation. 2. Minimally thickened gallbladder wall. 3. Suboptimal visualization of the pancreas due to bowel gas. D/ / 11/17/2018 10:04:41 Leona Mosley MD / candido Interpreting Provider: Leona Mosley MD Consult Discharge Plan - Plan Referrals: Bryan Ybarra DO [Primary Care Provider] - (1) Pancreatitis Qualifiers: Chronicity: acute Pancreatitis type: unspecified pancreatitis type Acute pancreatitis complication: unspecified Qualified Code(s): K85.90 - Acute pancreatitis without necrosis or infection, unspecified
[2018-11-18] MEDS: *HR* OxyCODONE Immed Rel 5 MG TABLET PO PRN (17:39)
[2018-11-19] MEDS: *HR* Heparin 5,000 UNIT/ML VIAL SQ SCH (05:03)
[2018-11-19] MEDS: *HR* OxyCODONE Immed Rel 5 MG TABLET PO PRN (07:31)
[2018-11-19] MEDS: Carbidopa/Levodopa ER 50/200 TABLET PO SCH (07:31)
[2018-11-19] MEDS: Insulin LISPRO 300 UNITS/3 ML VIAL SQ SCH ×2 (07:32→11:34)
[2018-11-19 09:32] LABS: Hematocrit 40.9 % (37.5-50.1); Hemoglobin 13.7 g/dL (12.9-16.9); Mean Corpuscular HGB Conc 33.5 g/dL (31.6-35.5); Mean Corpuscular Hemoglobin 32.5 pg (28.0-33.3); Mean Corpuscular Volume 97.1 fL (83.0-100.0); Mean Platelet Volume 10.5 fL (9.4-12.4); Platelet Count 114 K/mcL (140-400); Red Blood Count 4.21 M/mcL (4.19-5.50); Red Cell Distribution Width 12.2 % (11.5-14.5); White Blood Count 10.9 K/mcL (4.3-11.1)
[2018-11-19 09:52] LABS: BUN/Creatinine Ratio 17 (6-26); Blood Urea Nitrogen 11 mg/dL (6-20); Calcium 7.9 mg/dL (8.6-10.3); Carbon Dioxide 24 mEq/L (23-29); Chloride 99 mEq/L (98-107); Glucose 175 mg/dL (70-105); Osmolality,Calculated 278 (280-300); Potassium 3.7 mEq/L (3.5-5.1); Sodium 132 mEq/L (136-145); eGFR For African Americans > 60 (> 60); eGFR For Non-African Americans > 60 (> 60)
[2018-11-19 10:26] VITALS: BP 127/84
--- NOTE | 2018-11-19 11:15 | Discharge Summary ---
- NOTES TO OUTPATIENT PROVIDER Notes to Outpatient Provider: Patient was admitted due to pancreatitis, 3rd episode in 3 years. Ultrasound of the abdomen is negative for cholelithiasis. Suspected due to lisinopril which was a switch to losartan. IgG 4 is pending. His A1c is 9.1 discussed this with the patient. Orders not resulted at time of discharge: Pending orders 11/18/18 07:08 Urinalysis reflex Microscopic [URIN] AM 0400 11/18/18 08:22 IgG Subclasses 1,2,3,4 AM 0400 Date of Encounter: 11/19/18 Time of Encounter: 10:15 - Discharge Diagnosis (1) Pancreatitis Priority: Primary Status: Resolved Qualifiers: Chronicity: acute Pancreatitis type: unspecified pancreatitis type Acute pancreatitis complication: unspecified Qualified Code(s): K85.90 - Acute pancreatitis without necrosis or infection, unspecified (2) HTN (hypertension) Priority: Secondary Status: Chronic Qualifiers: Hypertension type: essential hypertension Qualified Code(s): I10 - Essential (primary) hypertension (3) DVT prophylaxis Priority: Secondary Status: Acute (4) Parkinson disease Priority: Secondary Status: Chronic (5) IDDM (insulin dependent diabetes mellitus) Priority: Secondary Status: Chronic Hospital course: Mr. Fairbanks is a 53 year old male with history of pancreatitis, Parkinson disease, IDDM given to the hospital with abdominal pain and CT findings of acute pancreatitis. Ultrasound abdomen was negative for choledocholithiasis. Patient was managed with IV fluids, pain management with improvement in his symptoms. He was evaluated by general surgery and was deemed not a candidate for cholecystectomy. Suspected etiology due to lisinopril which was switched to losartan. Patient also had poor diabetic management with his A1c of 9.1. Discussed this with him and recommended him to follow with his PCP. Today, patient is hemodynamically stable, asymptomatic, able to tolerate regular diet without complication. He will be discharged home in stable condition Discharge discussed with: patient - Time Spent with Patient Total time spent providing and/or coordinating discharge services:40 minutes - Discharge Medications Prescriptions: New Losartan [Cozaar] 25 mg PO DAILY #30 tablet Atorvastatin [Lipitor] 40 mg PO HS tablet Tramadol HCl [Ultram] 50 mg PO BID PRN 4 Days #8 tab PRN Reason: Severe Pain Continued metFORMIN [Glucophage] 500 mg PO BIDWM Carbidopa/Levodopa ER 50/200 [Sinemet ER 50-200 Tab] 2 tab PO BID Discontinued Atorvastatin [Lipitor] 10 mg PO HS Lisinopril [Zestril] 10 mg PO DAILY Home Medications: metFORMIN [Glucophage] 500 mg PO BIDWM 11/16/18 [History] Carbidopa/Levodopa ER 50/200 [Sinemet ER 50-200 Tab] 2 tab PO BID 11/17/18 [History] Atorvastatin [Lipitor] 40 mg PO HS tablet 11/19/18 [Rx] Losartan [Cozaar] 25 mg PO DAILY #30 tablet 11/19/18 [Rx] Tramadol HCl [Ultram] 50 mg PO BID PRN 4 Days #8 tab 11/19/18 [Rx] Allergies/Adverse Reactions: Allergy/AdvReac Type Severity Reaction Status Date / Time Iodinated Contrast Media Allergy Hives Verified 11/16/18 22:19 Date of admission: 11/17/18 02:32 Primary care physician: Bryan Ybarra DO Consults: 11/17/18 02:27 Consult to Nutrition [CONS] Routine Comment: Consulting Provider: NUTRITION Reason for Dietary Consult: Diet Education 11/17/18 06:00 Consult to Physician [CONS] Routine Consulting Provider: Lilian Goldsmith Reason for Consult: recurrent pancreatitis. needs inpatient cholecystectemy after resolution. Call Completed: No - Constitutional Vitals: Temp Pulse Resp BP Pulse Ox 98.1 F 83 18 127/84 92 11/19/18 10:22 11/19/18 10:22 11/19/18 10:22 11/19/18 10:22 11/19/18 10:22 Exam: General: Patient is alert, oriented 3. Head: Atraumatic, normal inspection, normocephalic. Eye: EOMI, PERRLA, no scleral icterus noted. ENT: Mucous membranes moist. Neck: Normal inspection Respiratory: No respiratory distress, rhonchi, or wheezes noted. Cardiovascular: Regular rate and regular rhythm, S1 and S2 audible. No murmurs, rubs, or gallops. GI: Soft, nondistended, normal bowel sounds. Extremities:No joint swelling, pedal edema, or tenderness noted. Neurological: Alert, oriented 3, no focal deficits. Psychiatric: normal affect, normal mood. Skin: Dry, intact, warm. Normal color. No rashes. - Patient Status Disposition: Home, Self-Care Functional capacity at discharge: independent ambulation Overall status at discharge: patient is back to baseline - Discharge Instructions Follow Up With: Bryan Ybarra DO [Primary Care Provider] - - Diet and Activity Activity: resume usual activities as tolerated Diet: diabetic diet
[2018-11-21 15:14] LABS: Immunoglobulin G Subclass 1 823 mg/dL (240-1118); Immunoglobulin G Subclass 2 298 mg/dL (124-549); Immunoglobulin G Subclass 3 147 mg/dL (21-134)
[2018-11-21 15:15] LABS: Immunoglobulin G Subclass 4 67 mg/dL (1-123)
== END 2018-11-19 11:35 | disposition home or self-care (01) ==
LOC: EMEROOARM 22:17 → 3ANU 22:17 → SUATTDRO 11-17 02:32
PROVIDERS: ADMIT Family Medicine; ATTEND Internal Medicine

== ENCOUNTER 2020-02-21 12:04 | Observation (INO) ==
[2020-02-21] MEDS: Aspirin 81 MG TAB.CHEW PO SCH (12:48)
[2020-02-21] MEDS ORDERED: Dexamethasone 4 MG/ML VIAL IVP ONE (12:58)
[2020-02-21] MEDS ORDERED: cefTRIAXone 1,000 MG in Water for inj. (sterile) 10 ML IVP ONE (12:58)
[2020-02-21] MEDS ORDERED: Azithromycin 500 MG in 0.9 % Sodium Chloride 250 ML IVPB ONE (12:58)
[2020-02-21 13:07] LABS: Basophils % 0.4 %; Eosinophils % 0.2 %; Hemoglobin 16.1 g/dL (12.9-16.9); Immature Granulocytes % 0.2 % (0-4); Lymphocytes # 1.3 K/mcL (0.6-4.6); Lymphocytes % 28.5 %; Mean Corpuscular HGB Conc 32.9 g/dL (31.6-35.5); Mean Corpuscular Hemoglobin 32.3 pg (28.0-33.3); Mean Corpuscular Volume 98.2 fL (83.0-100.0); Monocytes # 0.6 K/mcL (0.0-1.3); Monocytes % 11.9 %; Neutrophils # 2.7 K/mcL (1.6-8.9); Red Blood Count 4.99 M/mcL (4.19-5.50); Red Cell Distribution Width 12.7 % (11.5-14.5); Segmented Neutrophils % 58.8 %; White Blood Count 4.6 K/mcL (4.3-11.1)
[2020-02-21 13:08] LABS: Platelet Count 92 K/mcL (140-400)
[2020-02-21 13:12] LABS: INR 1.1; Prothrombin Time 12.8 Seconds (9.4-12.1)
[2020-02-21 13:14] LABS: Activated Partial Thrombo Time 31.7 Seconds (26.0-36.0)
[2020-02-21 13:23] LABS: Alanine Aminotransferase 21 Units/L (7-52); Albumin 3.9 g/dL (3.5-5.7); Albumin/Globulin Ratio 1.1 (1.1-2.2); Alkaline Phosphatase 67 Units/L (34-104); Aspartate Amino Transferase 53 Units/L (13-39); BUN/Creatinine Ratio 25 (6-26); Bilirubin,Direct 0.2 mg/dL (0.0-0.2); Bilirubin,Indirect 0.5 mg/dL (0.0-1.0); Bilirubin,Total 0.7 mg/dL (0.3-1.0); Blood Urea Nitrogen 15 mg/dL (6-20); C-Reactive Protein 83 mg/L (Less than 10); Calcium 8.8 mg/dL (8.6-10.3); Carbon Dioxide 25 mEq/L (23-29); Chloride 102 mEq/L (98-107); Globulin 3.5 g/dL (2.4-3.5); Glucose 102 mg/dL (70-105); Lactate Dehydrogenase 244 Units/L (140-271); Magnesium 1.9 mg/dL (1.6-2.6); Osmolality,Calculated 287 (280-300); Phosphorous 2.8 mg/dL (2.7-4.5); Potassium 3.6 mEq/L (3.5-5.1); Sodium 138 mEq/L (136-145); Total Protein 7.4 g/dL (6.4-8.9); Troponin I < 0.03 ng/mL (< 0.04); eGFR For African Americans > 60 (> 60); eGFR For Non-African Americans > 60 (> 60)
[2020-02-21 13:36] LABS: Ferritin 321 ng/mL (20-250)
[2020-02-21 14:03] LABS: Bilirubin,Urine Negative (Negative); Blood,Urine Negative (Negative); Clarity,Urine Clear (Clear); Color,Urine Yellow (Yellow); Glucose,Urine (UA) >=1000 mg/dL (Normal); Ketones,Urine Trace mg/dL (Negative); Leukocyte Esterase,Urine Negative (Negative); Mucus,Urine Few per lpf (None-Few); Nitrite,Urine Negative (Negative); PH,Urine 6.5 pH Units (5.0-8.0); Protein,Urine Trace mg/dL (Neg-Trace); Specific Gravity,Urine > 1.030 (1.010-1.025); WBC,Urine 0-3 per hpf (0-3)
[2020-02-21] MEDS ORDERED: Ondansetron 4 MG/2 ML VIAL IVP PRN (15:25)
[2020-02-21] MEDS ORDERED: Naloxone 0.4 MG/ML INJ IVP PRN (15:25)
[2020-02-21] MEDS ORDERED: Benzonatate 100 MG CAPSULE PO PRN (15:27)
[2020-02-21] MEDS ORDERED: Dextrose Gel 15 GM/37.5 ML TUBE PO PRN ×2 (15:31)
[2020-02-21] MEDS ORDERED: *HR* Dextrose 50 % in Water (Vial) 50 ML VIAL IVP PRN (15:31)
[2020-02-21] MEDS ORDERED: D5% in Water 1,000 ML IVC PRN (15:31)
[2020-02-21] MEDS: Insulin LISPRO 300 UNITS/3 ML VIAL SQ SCH ×2 (15:59→21:24)
[2020-02-21] MEDS: 0.9 % Sodium Chloride 1,000 ML IVC SCH ×2 (16:25→17:03)
[2020-02-21] MEDS ORDERED: 0.9 % Sodium Chloride 500 ML ONE (17:22)
[2020-02-21] MEDS: Carbidopa/Levodopa ER 50/200 TABLET PO SCH (21:22)
[2020-02-22] MEDS: *HR* Enoxaparin 40 MG/0.4 ML SYRINGE SQ SCH (04:22)
[2020-02-22 05:58] LABS: Basophils % 0.3 %; Immature Granulocytes % 0.3 % (0-4)
[2020-02-22 05:59] LABS: Hemoglobin 15.5 g/dL (12.9-16.9); Immature Platelets 4.2 % (1.1-6.1); Lymphocytes # 0.9 K/mcL (0.6-4.6); Lymphocytes % 24.4 %; Mean Corpuscular HGB Conc 32.3 g/dL (31.6-35.5); Mean Corpuscular Hemoglobin 31.8 pg (28.0-33.3); Mean Corpuscular Volume 98.4 fL (83.0-100.0); Mean Platelet Volume 10.6 fL (9.4-12.4); Monocytes # 0.4 K/mcL (0.0-1.3); Monocytes % 11.3 %; Neutrophils # 2.4 K/mcL (1.6-8.9); Platelet Count 101 K/mcL (140-400); Red Blood Count 4.88 M/mcL (4.19-5.50); Red Cell Distribution Width 12.5 % (11.5-14.5); Segmented Neutrophils % 63.7 %; White Blood Count 3.7 K/mcL (4.3-11.1)
[2020-02-22 06:16] LABS: BUN/Creatinine Ratio 26 (6-26); Blood Urea Nitrogen 14 mg/dL (6-20); Calcium 8.6 mg/dL (8.6-10.3); Carbon Dioxide 26 mEq/L (23-29); Chloride 103 mEq/L (98-107); Glucose 106 mg/dL (70-105); Osmolality,Calculated 287 (280-300); Sodium 138 mEq/L (136-145); eGFR For African Americans > 60 (> 60); eGFR For Non-African Americans > 60 (> 60)
[2020-02-22] MEDS: Carbidopa/Levodopa ER 50/200 TABLET PO SCH ×2 (07:56→20:34)
[2020-02-22] MEDS: Aspirin 81 MG TAB.CHEW PO SCH (07:57)
[2020-02-22] MEDS: Dexamethasone 4 MG/ML VIAL IVP SCH (07:57)
[2020-02-22] MEDS: Insulin LISPRO 300 UNITS/3 ML VIAL SQ SCH ×4 (07:58→20:47)
[2020-02-22] MEDS: Furosemide 20 MG/2 ML VIAL IVP SCH (07:58)
[2020-02-22] MEDS: cefTRIAXone 1,000 MG in Water for inj. (sterile) 10 ML IVP SCH (12:23)
[2020-02-22] MEDS ORDERED: Azithromycin 500 MG in 0.9 % Sodium Chloride 250 ML IVPB SCH (16:00)
[2020-02-22] MEDS: Azithromycin 250 MG TABLET PO SCH (17:00)
[2020-02-23] MEDS: *HR* Enoxaparin 40 MG/0.4 ML SYRINGE SQ SCH (05:14)
[2020-02-23] MEDS: Insulin LISPRO 300 UNITS/3 ML VIAL SQ SCH ×2 (09:13→12:22)
[2020-02-23] MEDS: Dexamethasone 4 MG/ML VIAL IVP SCH (09:22)
[2020-02-23] MEDS: Furosemide 20 MG/2 ML VIAL IVP SCH (09:22)
[2020-02-23] MEDS: Carbidopa/Levodopa ER 50/200 TABLET PO SCH (09:23)
[2020-02-23 11:53] VITALS: BP 148/79
[2020-02-23 11:54] LABS: Basophils % 0.2 %; Hematocrit 49.3 % (37.5-50.1); Hemoglobin 16.4 g/dL (12.9-16.9); Immature Granulocytes % 0.6 % (0-4); Lymphocytes # 1.6 K/mcL (0.6-4.6); Lymphocytes % 15.6 %; Mean Corpuscular HGB Conc 33.3 g/dL (31.6-35.5); Mean Corpuscular Hemoglobin 32.3 pg (28.0-33.3); Mean Corpuscular Volume 97.2 fL (83.0-100.0); Mean Platelet Volume 10.5 fL (9.4-12.4); Monocytes # 0.6 K/mcL (0.0-1.3); Monocytes % 5.2 %; Platelet Count 173 K/mcL (140-400); Red Blood Count 5.07 M/mcL (4.19-5.50); Red Cell Distribution Width 12.4 % (11.5-14.5); Segmented Neutrophils % 78.4 %
[2020-02-23 11:55] LABS: Neutrophils # 8.2 K/mcL (1.6-8.9); White Blood Count 10.5 K/mcL (4.3-11.1)
[2020-02-23 12:00] LABS: INR 1.1; Prothrombin Time 12.5 Seconds (9.4-12.1)
[2020-02-23 12:14] LABS: BUN/Creatinine Ratio 31 (6-26); Blood Urea Nitrogen 19 mg/dL (6-20); C-Reactive Protein 31 mg/L (Less than 10); Calcium 8.4 mg/dL (8.6-10.3); Carbon Dioxide 21 mEq/L (23-29); Chloride 98 mEq/L (98-107); Glucose 175 mg/dL (70-105); Lactate Dehydrogenase 305 Units/L (140-271); Osmolality,Calculated 285 (280-300); Potassium 3.4 mEq/L (3.5-5.1); Sodium 134 mEq/L (136-145); eGFR For African Americans > 60 (> 60); eGFR For Non-African Americans > 60 (> 60)
[2020-02-23] MEDS: cefTRIAXone 1,000 MG in Water for inj. (sterile) 10 ML IVP SCH (12:23)
[2020-02-23] MEDS ORDERED: Acetaminophen 325 MG TABLET PO ONE (12:37)
[2020-02-23] MEDS ORDERED: Potassium Chloride Elixir 20 MEQ/15 ML UDC PO ONE (13:37)
[2020-02-23] MEDS: Azithromycin 250 MG TABLET PO SCH (16:12)
== END 2020-02-23 16:55 | disposition home or self-care (01) ==
LOC: EMEROOARM 12:04 → 2NENU 12:04 → SUATTDRO 14:39 → 2NENU 15:07 → 3BNU 02-22 14:31
PROVIDERS: ADMIT Internal Medicine; ATTEND Internal Medicine